=== PATIENT | male | born 1960 | race Caucasian/White ===

== ENCOUNTER 2018-05-18 12:02 | Emergency (ER) | payer OTHER ==
[~2018-05-18] VITALS: Ht 180.3 cm; Wt 82.5 kg
[2018-05-18 12:59] LABS: BASOPHILS % (AUTO) 0.3 % (0-1); EOSINOPHILS % (AUTO) 0.1 % (0-6); HEMATOCRIT 43.4 % (42.0-52.0); HEMOGLOBIN 14.8 g/dl (14.0-17.9); LYMPHOCYTES # (AUTO) 0.8 X10'3 (1.1-4.8); LYMPHOCYTES % (AUTO) 6.2 % (21-51); MEAN CORPUSCULAR HEMOGLOBIN 32.5 PG (27.0-31.0); MEAN CORPUSCULAR VOLUME 95.5 FL (78-98); MEAN PLATELET VOLUME 8.1 FL (7.4-10.4); MONOCYTES # (AUTO) 0.7 X10'3 (0-0.9); MONOCYTES % (AUTO) 5.4 % (2-12); PLATELET COUNT 129 X10'3 (140-440); RED BLOOD COUNT 4.55 X10'6 (4.70-6.10); WHITE BLOOD COUNT 12.5 X10'3 (4.5-11.0)
[2018-05-18 13:13] LABS: ALANINE AMINOTRANSFERASE 120 U/L (12-78); ALKALINE PHOSPHATASE 87 IU/L (46-116); ANION GAP 8 (8-16); ASPARTATE AMINO TRANSFERASE 256 U/L (10-37); BILIRUBIN,TOTAL 1.8 MG/DL (0.1-1.0); BLOOD UREA NITROGEN 21 MG/DL (7-18); CALCIUM 9.3 MG/DL (8.5-10.1); CHLORIDE 92 MMOL/L (99-107); GLUCOSE 122 MG/DL (70-104); POTASSIUM 3.8 MMOL/L (3.5-5.1); SODIUM 129 MMOL/L (135-145); TOTAL PROTEIN 8.2 G/DL (6.4-8.2); eGFR 77 ML/MIN
[2018-05-18 14:51] LABS: CLARITY,URINE CLEAR (Clear); COLOR,URINE ORANGE (Yellow); GLUCOSE, URINE NEGATIVE (Neg); KETONES,URINE 15 mg/dl (Neg); LEUKOCYTE ESTERASE ,URINE NEGATIVE (Neg); NITRITES, URINE NEGATIVE (Neg); OCCULT BLOOD,URINE TRACE-INTACT (Neg); PROTEIN,URINE TRACE mg/dl (Neg)
[2018-05-18 14:55] VITALS: BP 124/79
[2018-05-18 15:02] LABS: URINE AMPHETAMINE SCREEN POSITIVE (Neg); URINE BARBITUATE SCREEN NEGATIVE (Neg); URINE BENZODIAZEPINES SCREEN NEGATIVE (Neg); URINE CANNABINOID SCREEN NEGATIVE (Neg); URINE COCAINE SCREEN NEGATIVE (Neg); URINE METHADONE SCREEN NEGATIVE (Neg); URINE OPIATE SCREEN NEGATIVE (Neg); URINE PHENCYCLIDINE SCREEN NEGATIVE (Neg)
[2018-05-18 15:06] LABS: UA COLLECTION TYPE CLN CATCH MIDSTREAM
[2018-05-18 15:16] LABS: MUCUS STRANDS MODERATE /LPF (Neg); TRANSITIONAL EPI CELLS,URINE FEW /HPF; WBC,URINE 0-4 /HPF (0-4)
[2018-05-18 15:17] LABS: SQUAMOUS EPITHELIAL CELL,UR FEW /LPF (FEW)
[2018-05-18 15:18] LABS: AMORPHOUS URATES 1+; BACTERIA,URINE NONE SEEN /HPF (Neg); RENAL CELLS, URINE FEW /HPF
== END 2018-05-18 14:57 | disposition home or self-care (01) ==
LOC: ER 12:03
DX: R44.2 Other hallucinations (principal); F15.10 Other stimulant abuse, uncomplicated; E87.1 Hypo-osmolality and hyponatremia; R94.5 Abnormal results of liver function studies; F17.200 Nicotine dependence, unspecified, uncomplicated
CPT/HCPCS: 36415; 80053; 80305; 81001; 85025; 99283; 99284

== ENCOUNTER 2021-10-26 11:46 | Emergency (ER) | payer MEDICAID ==
[~2021-10-26] VITALS: Ht 180.3 cm; Wt 75.0 kg
[2021-10-26 12:34] VITALS: BP 130/72
[2021-10-26] MEDS ORDERED: mupirocin 2% ointment 22GM TP STA (15:49)
[2021-10-26] MEDS ORDERED: TRIA15CR61 TOP (16:29)
[2021-10-26] MEDS ORDERED: MUPI22OI30 TOP (16:29)
[2021-10-26] MEDS ORDERED: SULF1TAB49 PO (16:29)
== END 2021-10-26 16:57 | disposition home or self-care (01) ==
LOC: ER 11:47
DX: L03.115 Cellulitis of right lower limb (principal); L01.00 Impetigo, unspecified; F15.90 Other stimulant use, unspecified, uncomplicated; Z72.89 Other problems related to lifestyle; Z79.2 Long term (current) use of antibiotics; Z79.899 Other long term (current) drug therapy
CPT/HCPCS: 93971; 99284; A6258; A6449